=== PATIENT | male | born 1965 | race Caucasian/White ===

== ENCOUNTER 2018-12-30 10:04 | Emergency (ER) | payer OTHER ==
[~2018-12-30] VITALS: Ht 177.8 cm; Wt 117.9 kg
[2018-12-30 10:40] LABS: Basophils # (auto) 0.1 uL; Basophils % (auto) 0.9 % (0.0-2.0); Eosinophils # (auto) 0.2 uL; Eosinophils % (auto) 3.1 % (0.0-7.0); Hematocrit 41.4 % (41.0-53.0); Lymphocytes # (auto) 1.3 uL; Lymphocytes % (auto) 19.1 % (10.0-50.0); Mean Corpuscular Hemoglobin 29.7 pg (28.0-32.0); Mean Corpuscular Hgb Conc. 33.7 g/dL (32.0-36.0); Monocytes # (auto) 0.6 uL; Neutrophils # (auto) 4.8 uL; Neutrophils % (auto) 67.9 % (37.0-80.0); Platelet Count (auto) 231 10^3/uL (140-450); Red Cell Distribution Width 13.5 % (11.8-14.3)
[2018-12-30 10:55] LABS: Alanine Aminotransferase 33 U/L (16-61); Albumin 3.9 g/dL (3.4-5.0); Anion Gap 7 (5-15); Blood Urea Nitrogen 19 mg/dL (7-18); Calcium 8.8 mg/dL (8.5-10.1); Carbon Dioxide 25 mmol/L (21-32); Chloride 106 mmol/L (98-107); Glucose 92 mg/dL (74-106); Magnesium 2.7 mg/dL (1.6-2.6); Potassium 4.5 mmol/L (3.5-5.1); Sodium 138 mmol/L (136-145)
[2018-12-30 11:00] LABS: Alkaline Phosphatase 140 U/L (45-117); Aspartate Aminotransferase 19 U/L (15-37); BUN/Creatinine Ratio 18.1; Bilirubin, Total 0.3 mg/dL (0.2-1.0); GFR African American 95 mL/min; GFR Non-African American 78 mL/min; Total Protein 7.9 g/dL (6.4-8.2)
[2018-12-30 15:10] VITALS: BP 138/87
== END 2018-12-30 15:18 | disposition home or self-care (01) ==
LOC: ER 10:04 → EEVIPCON 10:04 → ER 15:18
DX: R07.89 Other chest pain (principal); N40.0 Benign prostatic hyperplasia without lower urinary tract symptoms; I10 Essential (primary) hypertension; J44.9 Chronic obstructive pulmonary disease, unspecified; E78.5 Hyperlipidemia, unspecified; Z86.711 Personal history of pulmonary embolism; Z88.2 Allergy status to sulfonamides
CPT/HCPCS: 36415; 71046; 80053; 83735; 84484; 85025; 85379; 93005; 94761

== ENCOUNTER 2019-08-22 20:11 | Emergency (ER) | payer OTHER ==
[~2019-08-22] VITALS: Ht 177.8 cm; Wt 124.7 kg
[2019-08-22 20:48] VITALS: BP 154/75
== END 2019-08-22 21:55 ==
LOC: ER 20:18 → MERGE 20:18 → EEVIPCON 20:18 → ER 21:54
DX: R60.0 Localized edema (principal); M79.661 Pain in right lower leg; J44.9 Chronic obstructive pulmonary disease, unspecified; I10 Essential (primary) hypertension
CPT/HCPCS: 93971